=== PATIENT | female | born 1975 ===

== ENCOUNTER → 2017-12-17 | Day surgery (SDC) | payer OTHER ==
[~2017-12-17] MED LIST: ASPIRIN81 M1 PO; HYZAAR 100-12.1 EACH PO; TOPROL XL50 M1 PO
== END | disposition home or self-care (01) ==
LOC: ADM 12-10 11:00 → CIR.AMB 05:44
DX: K60.5 Anorectal fistula (principal); K60.1 Chronic anal fissure